=== PATIENT | male | born 1990 | race Caucasian/White ===

== ENCOUNTER 2017-09-20 18:37 | Emergency (ER) | payer MEDICAID ==
--- NOTE | 2017-09-20 18:53 | ED Physician Chart ---
ED Chief Complaint/HPI - Patient Information Date Seen:: 09/20/17 Time Seen:: 18:51 Chief Complaint:: cough, vomiting History of Present Illness:: 27 yo male had cough, nausea and vomiting, fever for 2 days Allergies:: Allergies Allergy/AdvReac Type Severity Reaction Status Date / Time No Known Allergies Allergy Verified 09/20/17 18:44 Vitals:: Vital Signs - 8 hr 09/20/17 18:44 Temp 99.7 F HR 95 RR 19 BP 101/45 O2 Sat % 96 ED Past Medical History - Past Medical History Past Medical History: No significant medical hx Social History: Smoker, Alcohol, No Drug Use Surgical History: None ED Septic Shock - <6hrs of presentation: Vital Signs: Vital Signs - 8 hr 09/20/17 18:44 Temp 99.7 F HR 95 RR 19 BP 101/45 O2 Sat % 96
[2017-09-20 20:17] LABS: % BASOPHILS 0.5 % (0.0-2.0); % EOSINOPHILS 2.3 % (0.0-5.0); % LYMPHOCYTES 29.5 % (20.0-50.0); % MONOCYTES 5.6 % (2.0-10.0); % NEUTROPHILS 62.1 % (40.0-80.0); EOSINOPHILE ABSOLUTE 0.2 Th/cmm (0.1-0.4); HEMATOCRIT 49.9 % (41.0-60); HEMOGLOBIN 16.4 gm/dL (12-16); LYMPHOCYTE ABSOLUTE 2.2 Th/cmm (1.5-3.0); MEAN CELL VOLUME 89.9 fl (80-99); MEAN CORPUSCULAR HEMOGLOBIN 29.6 pg (26.0-30.0); MEAN CORPUSCULAR HGB CONC 32.9 pg (28.0-36.0); MEAN PLATELET VOLUME 8.1 fl; MONOCYTE ABSOLUTE 0.4 Th/cmm (0.3-1.0); NEUTROPHILE ABSOLUTE 4.7 Th/cmm (1.8-8.0); PLATELET COUNT 225 Th/cmm (150-400); RED BLOOD COUNT 5.55 Mil/cmm (4.30-5.70); RED CELL DISTRIBUTION WIDTH 12.6 % (11.5-20.0); WHITE BLOOD COUNT 7.5 Th/cmm (4.8-10.8)
[2017-09-20 20:37] LABS: ALB/GLOB RATIO 1.9 (1.0-1.8); ALBUMIN 4.7 gm/dL (4.2-5.5); ALKALINE PHOSPHATASE 89 U/L (34-104); ANION GAP 9.5 (7.0-16.0); BILIRUBIN,TOTAL 0.4 mg/dL (0.3-1.0); BUN - UREA NITROGEN 14 mg/dL (7-25); CALCIUM SERUM 10.3 mg/dL (8.6-10.3); CARBON DIOXIDE 27.4 mEq/L (21.0-31.0); CHLORIDE 106 mEq/L (98-107); CREATININE - SERUM 0.9 mg/dL (0.7-1.3); GFR AFRICAN-AMERICAN > 60.0 ml/min (>90); GFR NON AFRICAN-AMERICAN > 60.0 ml/min; GLUCOSE 88 mg/dL (70-105); POTASSIUM SERUM 3.9 mEq/L (3.5-5.1); SGOT 19 U/L (13-39); SGPT/ALT 22 U/L (7-52); SODIUM SERUM 139 mEq/L (136-145); TOTAL PROTEIN,SERUM 7.2 gm/dL (6.0-8.3)
--- NOTE | 2017-09-21 09:31 | Diagnostic Imaging Report ---
CHEST X-RAY: AP view INDICATION: Cough COMPARISON: None FINDINGS: Increased interstitial lung markings are noted. There is no focal consolidation or pleural effusions The heart is normal in size. The osseous structures demonstrate no acute abnormalities. IMPRESSION: Increased interstitial lung markings which may be due to viral or reactive airway disease or chronic changes. No focal consolidation is identified.
== END 2017-09-20 21:50 | disposition home or self-care (01) ==
LOC: ER 18:37
DX: R05 Cough (principal)
CPT/HCPCS: 36415-UA; 71010-TC; 80053-TC; 85025-TC